=== PATIENT | male | born 1990 | race Two or more races ===

== ENCOUNTER 2019-09-15 15:23 | Emergency (ER) | payer SELFPAY ==
[~2019-09-15] VITALS: Ht 167.6 cm; Wt 90.7 kg
[2019-09-15 15:45] VITALS: BP 129/78
--- NOTE | 2019-09-15 15:45 | NUR ---
ED Nurse Note: ambulated to ed c/o left sided chestpain and sob x 05/05. patient ao4. nad. vss. changed into gown; attached to monitor. all safety measure met. family at bedside; will continue to monitor.
--- NOTE | 2019-09-15 15:50 | NUR ---
ED Nurse Note: iv access established. blood and urine collected; sent down to lab.
[2019-09-15 16:57] LABS: ANION GAP 11 mmol/L (5-15); BLOOD UREA NITROGEN 14 mg/dL (7-18); CALCIUM 8.9 MG/DL (8.5-10.1); CARBON DIOXIDE 28 MMOL/L (21-32); CHLORIDE 107 MMOL/L (98-107); CREATININE 0.8 MG/DL (0.55-1.30); POTASSIUM 3.8 MMOL/L (3.5-5.1); SODIUM 146 MMOL/L (136-145)
[2019-09-15 17:00] LABS: INR 0.9 (0.9-1.1)
[2019-09-15 17:03] LABS: BASOPHILS % (AUTO) 0.9 % (0.0-2.0); EOSINOPHILS % (AUTO) 1.3 % (0.0-3.0); HEMOGLOBIN 14.1 G/DL (14.2-18.0); LYMPHOCYTES % (AUTO) 40.7 % (20.0-45.0); MEAN CORPUSCULAR VOLUME 84 FL (80-99); MONOCYTES % (AUTO) 8.4 % (1.0-10.0); NEUTROPHILS % (AUTO) 48.7 % (45.0-75.0); PLATELET COUNT 329 K/UL (150-450); RED BLOOD COUNT 5.14 M/UL (4.70-6.10); RED CELL DISTRIBUTION WIDTH 13.1 % (11.6-14.8)
[2019-09-15 17:07] LABS: ALANINE AMINOTRANSFERASE 52 U/L (12-78); ALBUMIN 3.9 G/DL (3.4-5.0); ALKALINE PHOSPHATASE 102 U/L (46-116); APPEARANCE,URINE CLEAR; ASPARTATE AMINO TRANSFERASE 26 U/L (15-37); BILIRUBIN, URINE NEGATIVE (NEGATIVE); BILIRUBIN,TOTAL 0.4 MG/DL (0.2-1.0); COLOR,URINE PALE YELLOW; GLUCOSE, URINE (UA) NEGATIVE (NEGATIVE); KETONES,URINE NEGATIVE (NEGATIVE); LEUKOCYTE ESTERASE ,URINE NEGATIVE (NEGATIVE); NITRITE,URINE NEGATIVE (NEGATIVE); PH,URINE 8 (4.5-8.0); PROTEIN,URINE NEGATIVE (NEGATIVE); UROBILINOGEN,URINE NORMAL MG/DL (0.0-1.0)
--- NOTE | 2019-09-15 17:21 | Diagnostic Imaging Report ---
EXAM: XR Chest, 1 View CLINICAL HISTORY: PAIN TECHNIQUE: Frontal view of the chest. COMPARISON: No relevant prior studies available. FINDINGS: Lungs: Unremarkable. No consolidation. Pleural space: Unremarkable. No pneumothorax. Heart: Unremarkable. No cardiomegaly. Mediastinum: Unremarkable. Bones/joints: Unremarkable. IMPRESSION: No acute cardiopulmonary disease.
[2019-09-15] MEDS ORDERED: IBUPROFEN600 MG ORAL (17:37)
--- NOTE | 2019-09-15 17:37 | Emergency Room Report ---
History of Present Illness General Chief Complaint: General Complaint Source: Patient Present Illness HPI 29-year-old male with no significant past medical history here complaining of intermittent left-sided chest pain and shortness of breath happening at rest for the past 4 months. Patient denies any recent travel. Denies recent URI symptoms. Denies fever and chills, abdominal pain, nausea vomiting. Reports that he often eats acidic foods as well as spicy food. Denies tobacco smoke, marijuana use, alcohol intake. Reports that he has been more anxious lately. Has not been seen by primary doctor reports that he has no insurance. Sitting comfortably with stable vital signs. Reports that the pain and shortness of breath happen throughout the day when resting without exertion and after taking few deep breaths will go away. Denies pleuritic chest pain. Denies leg swelling, cancer history, recent travel for prolonged hours. Denies urinary symptoms. Sitting comfortably with stable vital signs. Has no pain right now. Denies pain radiation. When he does have the pain rated 3 out of 10 and sharp in the left side of chest. Denies tingling and numbness. Denies fall or injury. Denies headache and dizziness or blurry vision. Allergies: Coded Allergies: No Known Allergies (Unverified , 09/15/19) Patient History Past Medical History: see triage record Past Surgical History: none Pertinent Family History: none Immunizations: UTD Reviewed Nursing Documentation: PMH: Agreed; PSxH: Agreed Nursing Documentation-PMH Hx Asthma: Yes Review of Systems All Other Systems: negative except mentioned in HPI Physical Exam Vital Signs Date Time Temp Pulse Resp B/P (MAP) Pulse Ox O2 Delivery O2 Flow Rate FiO2 09/15/19 15:36 99.1 70 18 129/78 (95) 95 Room Air Sp02 EP Interpretation: reviewed, normal General Appearance: no apparent distress, alert, GCS 15, non-toxic Head: normocephalic, atraumatic Eyes: bilateral eye normal inspection, bilateral eye PERRL ENT: hearing grossly normal, normal pharynx, no angioedema, normal voice Neck: full range of motion, supple, no meningismus, no bony tend, supple/symm/ no masses Respiratory: chest non-tender, lungs clear, normal breath sounds, no rhonchi, no respiratory distress, no retraction, no accessory muscle use, no wheezing, speaking full sentences Cardiovascular #1: regular rate, rhythm, no edema, no murmur, normal capillary refill Cardiovascular #2: 2+ carotid (R), 2+ carotid (L), 2+ radial (R), 2+ radial (L) , 2+ dorsalis pedis (R), 2+ dorsalis pedis (L) Gastrointestinal: normal bowel sounds, non tender, soft, non-distended, no guarding, no rebound Rectal: deferred Genitourinary: no CVA tenderness Musculoskeletal: back normal, normal range of motion, digits/nails normal, no calf tenderness, pelvis stable Neurologic: alert, motor strength/tone normal, oriented x3, sensory intact, responsive, speech normal Psychiatric: judgement/insight normal, memory normal, mood/affect normal, no suicidal/homicidal ideation Skin: no rash Lymphatic: no adenopathy Medical Decision Making PA Attestation Diagnosis and treatment plans were reviewed and discussed with my supervising physician Dr. Reaves Diagnostic Impression: Primary Impression: Nonspecific chest pain Additional Impressions: SOB (shortness of breath) Anxiety ER Course 29-year-old male with no significant past medical history here complaining of intermittent left-sided chest pain and shortness of breath happening at rest for the past 4 months. Patient denies any recent travel. Denies recent URI symptoms. Denies fever and chills, abdominal pain, nausea vomiting. Reports that he often eats acidic foods as well as spicy food. Denies tobacco smoke, marijuana use, alcohol intake. Reports that he has been more anxious lately. Has not been seen by primary doctor reports that he has no insurance. Sitting comfortably with stable vital signs. Reports that the pain and shortness of breath happen throughout the day when resting without exertion and after taking few deep breaths will go away. Denies pleuritic chest pain. Denies leg swelling, cancer history, recent travel for prolonged hours. Denies urinary symptoms. Sitting comfortably with stable vital signs. Has no pain right now. Denies pain radiation. When he does have the pain rated 3 out of 10 and sharp in the left side of chest. Denies tingling and numbness. Denies fall or injury. Denies headache and dizziness or blurry vision. Ddx considered but are not limited to: OR, Angina, COPD, GERD, Vital signs: are WNL, pt. is afebrile H&PE are most consistent with nonspecific chest pain or shortness of breath, anxiety ORDERS: EKG, Chest XR, troponin, CBC, CMP, BNP, tox screen, Motrin ED INTERVENTIONS: NS bolus DISCHARGE: At this time pt. is stable for d/c to home. Will provide printed patient care instructions, and any necessary prescriptions. Care plan and follow up instructions have been discussed with the patient prior to discharge. Follow-up with primary care doctor, on call pharmacy technician referral may be needed, also be evaluated for anxiety, if worsening symptoms return to emergency room patient has no SI or HI. EKG Diagnostic Results Rate: normal Rhythm: NSR ST Segments: no acute changes Other Impression No acute ST changes Chest X-Ray Diagnostic Results Chest X-Ray Diagnostic Results : Chest X-Ray Ordered: Yes # of Views/Limited/Complete: 1 View Indication: Chest Pain EP Interpretation: Yes NOE Xray: Interpretation reviewed, by supervising MD, and agrees with findings. Interpretation: no consolidation, no effusion, no pneumothorax Impression: No acute disease Electronically Signed by: Benedicto Garcia PA-C Last Vital Signs Date Time Temp Pulse Resp B/P (MAP) Pulse Ox O2 Delivery O2 Flow Rate FiO2 09/15/19 15:45 70 18 Room Air 09/15/19 15:45 99.1 129/78 95 Disposition: HOME, SELF-CARE Condition: Stable Scripts Ibuprofen* (MOTRIN*) 600 Mg Tablet 600 MG ORAL Q6H PRN for For Pain, #30 TAB Prov: Benedicto Luke 09/15/19 Referrals: NOT CHOSEN IPA/,REFERRING (PCP) Patient Instructions: Nonspecific Chest Pain, Shortness of Breath, [id number] Additional Instructions: Take medication as directed, follow-up with primary care provider, increase oral hydration, make sure your primary doctor send you to a on call pharmacy technician for further evaluation, also assess your anxiety. If worsening symptoms return to the emergency room at this time there are no acute causes of your chest pain shortness of breath. Benedicto Luke Sep 15, 2019 17:37
[2019-09-15 17:45] VITALS: BP 129/78
--- NOTE | 2019-09-15 17:45 | NUR ---
ER DISCHARGE NOTE: Patient is cleared to be discharged per ERMD, pt is aox4, on room air, with stable vital signs. accompanied by family member. pt was given dc and prescription instructions, pt was able to verbalize understanding, pt id band and iv site removed without complications. pt is able to ambulate with steady gait. pt took all belongings.
== END 2019-09-15 17:45 | disposition home or self-care (01) ==
LOC: EMR 16:07
DX: R07.89 Other chest pain (principal); R06.02 Shortness of breath; F41.9 Anxiety disorder, unspecified; J45.909 Unspecified asthma, uncomplicated
CPT/HCPCS: 36415; 71045; 80053; 80307; 81003; 83880; 84484; 85025; 85610; 85730; 93005; 96360; 99284